=== PATIENT | female | born 1980 | race African-American/Black ===

== ENCOUNTER 2019-01-17 15:08 | Emergency (ER) | payer MEDICAID, OTHER ==
[~2019-01-17] VITALS: Ht 165.1 cm; Wt 136.1 kg
--- NOTE | 2019-01-17 15:08 | NUR ---
PT IN WHEELCHAIR TO ER BED 10
--- NOTE | 2019-01-17 15:09 | NUR ---
PT STATES SHE HAS FINISHED ZPACK AND IS NO LONGER TAKING MEDICATIONS
--- NOTE | 2019-01-17 15:09 | NUR ---
PATIENT STATES SHE FEELS LIKE HER CHEST IS BEING SQUEEZED BECAUSE SHE CANT BREATH
--- NOTE | 2019-01-17 15:09 | NUR ---
39 Y FEMALE C/O CP/SOB X 1 WEEK. LABORED BREATHING, TACHYPNEA AT 20 RR. PT CONTINUES TO TAKE BREATHS BETWEEN EVERY OTHER WORD. BILATERAL CRACKLES THROUGHOUT LUNGS. PATIENT AT 99% RA. PT STATES SHE RECENTLY HAD BRONCHITIS 2 WEEKS AGO AND WAS GIVEN A ZPACK BUT SHE STATES SHE IS NOT GETTING BETTER. PT HAD TO BE WHEELCHAIR ASSISTED FROM LOBBY TO BED 10 FOR TRIAGE DUE TO WEAKNESS. PT STATES SHE IS AN [employer]. AA0X4. BED IS DOWN, LOCKED, BED RAIL X 1, ERMD TO SEE PT. HX: BRONCHITIS
--- NOTE | 2019-01-17 15:11 | NUR ---
AUSTIN GILL AT BEDSIDE FOR EKG. READS SINUS TACHY AT 104.
[2019-01-17 15:14] VITALS: BP 144/74
[2019-01-17] MEDS ORDERED: IPRATROPIUM 0.02% 0.5 MG/2.5 ML NEBU INH ONE (15:15)
[2019-01-17] MEDS ORDERED: methylPREDNISolone SS 125 MG/2 ML VIAL IVP ONE (15:15)
[2019-01-17] MEDS ORDERED: ALBUTEROL 0.083% 2.5 MG/3 ML NEBU INH ONE (15:15)
--- NOTE | 2019-01-17 15:20 | NUR ---
ADMITTING DX: SOB HX: COPD LOC AWAKE AND ALERT FOLLOWS ADMINISTRATIVE OFFICE CLERK VERBAL COMMANDS EDUCATION PROVIDED TO PATIENT WITH ACKNOWLEDGEMENT ON HHN THERAPY AND RESPIRATORY DRUGS FOREMENTIONED GIVEN ORDERED ENCOURAGED PATIENT FOR INTERMITTENT DEEP BREATHING DURING THERAPY
--- NOTE | 2019-01-17 15:25 | NUR ---
20 G L HAND AND LABS DRAWN BEDSIDE. HANDED DIRECTLY TO BONUS CLERK.
--- NOTE | 2019-01-17 15:26 | NUR ---
RT AT BEDSIDE.
--- NOTE | 2019-01-17 15:27 | NUR ---
SOLU-MEDROL IVP ADMINISTERED
--- NOTE | 2019-01-17 15:28 | NUR ---
XRAY AT BEDSIDE
[2019-01-17 15:34] LABS: BASOPHILS # (AUTO) 0.1 K/uL (0.00-0.22); BASOPHILS % (AUTO) 1.2 % (0.0-2.0); EOSINOPHILS # (AUTO) 0.1 K/uL (0-0.4); EOSINOPHILS % (AUTO) 1.3 % (0.0-4.0); HEMATOCRIT 35.1 % (36-48); HEMOGLOBIN 11.1 g/dL (12.0-16.0); LYMPHOCYTES # (AUTO) 4.1 K/uL (2.5-16.5); LYMPHOCYTES % (AUTO) 41.7 % (20.5-51.1); MEAN CORPUSCULAR HEMOGLOBIN 25 pg (27-31); MEAN CORPUSCULAR HGB CONC 32 g/dL (33-37); MEAN CORPUSCULAR VOLUME 80.2 fL (80-94); MONOCYTES # (AUTO) 0.9 K/uL (0.8-1.0); MONOCYTES % (AUTO) 8.8 % (1.7-9.3); NEUTROPHILS # (AUTO) 4.7 K/uL (1.8-7.7); PLATELET COUNT (AUTO) 509 K/uL (140-450); RED BLOOD CELL COUNT(AUTO) 4.38 MIL/uL (4.20-5.40); WHITE BLOOD COUNT (AUTO) 9.9 K/uL (4.8-10.8)
--- NOTE | 2019-01-17 15:57 | NUR ---
PT WHEELCHAIRED AND ASSISTED TO RESTROOM
[2019-01-17 16:01] LABS: ALBUMIN 3.2 g/dL (3.4-5.0); ANION GAP 10.4 (8-16); CARBON DIOXIDE 24.5 mmol/L (21-32); CREATININE 0.8 mg/dL (0.6-1.3); POTASSIUM 3.9 mmol/L (3.5-5.1); TOTAL BILIRUBIN 0.2 mg/dL (0.0-1.0)
--- NOTE | 2019-01-17 17:09 | NUR ---
RR EVEN AND UNLABORED. BREATH SOUNDS CLEAR BILATERALLY. PT SPEAKING IN FULL AND COMPLETE SENTENCES. PT CONTINUES TO TALK ON THE PHONE DURING VITALS.
[2019-01-17 17:33] VITALS: BP 120/68
--- NOTE | 2019-01-17 17:33 | NUR ---
Patient discharged with v/s stable. Written and verbal after care instructions given and explained. Patient alert, oriented and verbalized understanding of instructions. Ambulatory with steady gait. All questions addressed prior to discharge. ID band removed. Patient advised to follow up with PMD. Rx of ALBUTEROL, AROCHAMBER given. Patient educated on indication of medication including possible reaction and side effects. Opportunity to ask questions provided and answered. PT GIVEN COPY OF ALL LAB WORK AND RESULTS. PT INSTRUCTED TO FOLLOW UP WITH OBGYN
== END 2019-01-17 17:33 | disposition home or self-care (01) ==
LOC: MED 15:08
DX: O99.511 Diseases of the respiratory system complicating pregnancy, first trimester (principal); J40 Bronchitis, not specified as acute or chronic; J98.01 Acute bronchospasm; F17.200 Nicotine dependence, unspecified, uncomplicated; Z71.6 Tobacco abuse counseling; Z90.49 Acquired absence of other specified parts of digestive tract; Z98.890 Other specified postprocedural states
CPT/HCPCS: 36415; 71045; 80053; 81002; 81025; 83605; 83880; 84484; 84702; 85025; 87040; 93005; 94640; 96374; 99284; J2930; J7613; J7644; Q0092

== ENCOUNTER 2019-02-12 12:36 | Emergency (ER) | payer OTHER ==
[~2019-02-12] VITALS: Ht 165.1 cm; Wt 141.6 kg
[2019-02-12 12:37] VITALS: BP 160/96
--- NOTE | 2019-02-12 12:47 | NUR ---
BIB SELF. AAO X4 C/O VAGINAL BLEEDING WORSENED & LOWER ABDOMINAL CRAMPING, PRESSURE 8/10 PAIN X 1 WEEK. PT REPORTED SHE HAD MISCARRIAGE 3 DAYS AGO. PT STATES THAT SHE WAS SEEN ON SUNDAY BY PCP AND WAS TOLD THAT SHE IS HAVING A MISCARRIAGE AND THAT SHE HAS A 4 CM SUBMUCOSAL UTERINE FIBROIDS. ABDOMEN SOFT, NON TENDER TO TOUCH. PT DENIES FEVER, N/V/D, TRAUMA. ER TO EVALUATE PT.
--- NOTE | 2019-02-12 12:47 | NUR ---
PATIENT AMBULATED TO BED 2 AT THIS TIME.
--- NOTE | 2019-02-12 13:05 | NUR ---
DR LANDON AT BEDSIDE FOR PT EVALUATION
[2019-02-12] MEDS ORDERED: MORPHINE SULFATE 4 MG/ML SYR IM ONE (13:20)
--- NOTE | 2019-02-12 13:35 | NUR ---
BIOMETRICS INSTRUCTOR AT BEDSIDE.
--- NOTE | 2019-02-12 13:55 | NUR ---
PT TAKES SHE DROVE HERSELF HERE. PT STATES THAT SHE WILL CALL ER FOR A RIDE HOME AFTER IM MORPHINE SHOT.
--- NOTE | 2019-02-12 14:10 | NUR ---
STUDENT NURSE FROM [facility] AT BEDSIDE WITH INSTRUCTOR FOR IM MEDICATION ORDERED
[2019-02-12 14:13] LABS: BASOPHILS # (AUTO) 0.1 K/uL (0.00-0.22); BASOPHILS % (AUTO) 0.9 % (0.0-2.0); EOSINOPHILS # (AUTO) 0.2 K/uL (0-0.4); EOSINOPHILS % (AUTO) 1.6 % (0.0-4.0); LYMPHOCYTES # (AUTO) 2.8 K/uL (2.5-16.5); LYMPHOCYTES % (AUTO) 27.4 % (20.5-51.1); MEAN CORPUSCULAR HEMOGLOBIN 25 pg (27-31); MEAN CORPUSCULAR HGB CONC 32 g/dL (33-37); MONOCYTES # (AUTO) 0.8 K/uL (0.8-1.0); MONOCYTES % (AUTO) 8.1 % (1.7-9.3); NEUTROPHILS # (AUTO) 6.4 K/uL (1.8-7.7); PLATELET COUNT (AUTO) 489 K/uL (140-450); RED BLOOD CELL COUNT(AUTO) 4.37 MIL/uL (4.20-5.40); RED CELL DISTRIBUTION WIDTH 18.5 % (11.6-13.7); WHITE BLOOD COUNT (AUTO) 10.3 K/uL (4.8-10.8)
--- NOTE | 2019-02-12 14:54 | NUR ---
PT GIVEN BLANKET FOR COMFORT. NO SIGNS AND SYMPTOMS OF DISTRESS NOTED. EVEN AND UNLABORED BREATHING.
--- NOTE | 2019-02-12 15:32 | NUR ---
PT ASLEEP. EASILY AROUSABLE BY VOICE. FULL CLEAR SPEECH. EVEN AND UNLABORED BREATHING. NO SIGNS AND SYMPTOMS OF DISTRESS NOTED. SAFETY ENSURED. WILL CONTINUE TO MONITOR.
--- NOTE | 2019-02-12 15:41 | NUR ---
DR LANDON AT BEDSIDE FOR PT RE EVALUATION
--- NOTE | 2019-02-12 16:19 | NUR ---
PT AMBULATED TO THE BATHROOM WITH STEADY GAIT.
--- NOTE | 2019-02-12 17:15 | NUR ---
CHAPERONED DR LANDON AT BEDSIDE FOR PELVIC EXAM. PT TOLERATED WELL.
--- NOTE | 2019-02-12 17:20 | NUR ---
PT WAS GIVEN UNDERWEAR, PADS AND WIPES.
[2019-02-12 17:40] VITALS: BP 136/88
--- NOTE | 2019-02-12 17:40 | NUR ---
Patient discharged with v/s stable. Written and verbal after care instructions given and explained. Patient alert, oriented and verbalized understanding of instructions. Ambulatory with steady gait. All questions addressed prior to discharge. ID band removed. Patient advised to follow up with PMD. Rx of PERCOCET 5MG-325 MG given. Patient educated on indication of medication including possible reaction and side effects. Opportunity to ask questions provided and answered.
== END 2019-02-12 17:40 | disposition home or self-care (01) ==
LOC: MED 12:36
DX: O20.0 Threatened abortion (principal); Z3A.00 Weeks of gestation of pregnancy not specified; Z90.49 Acquired absence of other specified parts of digestive tract; Z98.890 Other specified postprocedural states
CPT/HCPCS: 36415; 76856; 81002; 81025; 84702; 85025; 96372; 99284; J2270; Q0092

== ENCOUNTER 2023-11-01 15:29 | Emergency (ER) | payer OTHER ==
[~2023-11-01] VITALS: Ht 165.1 cm; Wt 146.1 kg
[2023-11-01 15:56] VITALS: BP 164/89; PULSE 89; RESP 18; TEMP 97.2; O2SAT 98
[2023-11-01] MEDS ORDERED: DEXT1TAB46 PO (16:44)
[2023-11-01] MEDS: ACETAMINOPHEN EXTRA STRENGTH 500 MG TAB PO ONE (16:49)
== END 2023-11-01 16:38 | disposition home or self-care (01) ==
LOC: MED 15:29
DX: I10 Essential (primary) hypertension (principal); J32.9 Chronic sinusitis, unspecified; Z90.49 Acquired absence of other specified parts of digestive tract
CPT/HCPCS: 99282